=== PATIENT | female | born 1935 | race Hispanic/Latino ===

== ENCOUNTER 2020-03-06 16:09 | Emergency (ER) | payer MEDICARE ==
[~2020-03-06] VITALS: Ht 142.2 cm; Wt 36.3 kg
--- OUTSIDE RECORDS SUMMARY | 2020-03-06 16:12 | XMS REPORT ---
Author Author [facility] Address Unknown Phone Unavailable Care Team Providers Care Shoveler Name Role Phone INNA HODGES Unavailable Unavailable Payers Payer Name Policy Type Policy Number Effective Date Expiration Date Problems This patient has no known problems. Allergies, Adverse Reactions, Alerts Allergy Name Allergy Type Status Severity Reaction(s) Onset Date Inactive Date Treating Clinician Comments No Known Allergies DA Active U 2019-09-13 00:00:00 No Known Allergies DA Active U 2018-08-26 00:00:00 No Known Allergies DA Active U 2017-08-27 00:00:00 Medications This patient has no known medications. Results Test Description Test Time Test Comments Text Results Atomic Results Result Comments GLUBED 2019-09-15 13:29:00 GLUBED (test code=GLUBED) 233 mg/dL 74-106 Performed by certified track grinder operator at [facility] BASIC METABOLIC [id number] 07:07:00* Test Item Value Reference Range Comments SODIUM (test code=NA) 139 mmol/L 136-145 POTASSIUM (test code=K) 3.2 mmol/L 3.5-5.1 CHLORIDE (test code=CL) 108.0 mmol/L 98-107 CARBON DIOXIDE (test code=CO2) 21.0 mmol/L 21-32 ANION GAP (test code=GAP) 13.2 10-20 GLUCOSE (test code=GLU) 147 mg/dL 74-106 BLOOD UREA NITROGEN (test code=BUN) 19 mg/dL 7-18 GLOMERULAR FILTRATION RATE (test code=GFR) 60 mL/min >=60 Estimated GFR by using Modified MDRD formula.Chronic kidney disease is defined as either kidney damageor GFR <60 mL/min/1.73 m2 for >3 months. CREATININE (test code=CREAT) 0.90 mg/dL 0.55-1.02 Note change in reference range due to change in reagent. BUN/CREATININE RATIO (test code=BUN/CREA) 21.8 10-20 CALCIUM (test code=CA) 8.5 mg/dL 8.5-10.1 BASIC METABOLIC [id number] 06:58:00* Test Item Value Reference Range Comments SODIUM (test code=NA) 139 mmol/L 136-145 POTASSIUM (test code=K) 3.2 mmol/L 3.5-5.1 CHLORIDE (test code=CL) 108.0 mmol/L 98-107 CARBON DIOXIDE (test code=CO2) mmol/L 21-32 ANION GAP (test code=GAP) 10-20 GLUCOSE (test code=GLU) mg/dL 74-106 BLOOD UREA NITROGEN (test code=BUN) mg/dL 7-18 GLOMERULAR FILTRATION RATE (test code=GFR) mL/min >=60 CREATININE (test code=CREAT) mg/dL 0.55-1.02 BUN/CREATININE RATIO (test code=BUN/CREA) 10-20 CALCIUM (test code=CA) mg/dL 8.5-10.1 CBC W/AUTO [id number] 06:50:00* Test Item Value Reference Range Comments WHITE BLOOD CELL (test code=WBC) 12.4 K/mm3 4.5-12.5 RED BLOOD CELL (test code=RBC) 4.33 mill/mm3 3.7-5.2 HEMOGLOBIN (test code=HGB) 13.1 gram/dL 11.5-15.5 HEMATOCRIT (test code=HCT) 39.6 % 36.0-46.0 MEAN CELL VOLUME (test code=MCV) 91.5 fL 80-98 MEAN CELL HGB (test code=MCH) 30.3 picogram 27.0-33.0 MEAN CELL HGB CONCETRATION (test code=MCHC) 33.1 gram/dL 33.0-36.0 RED CELL DISTRIBUTION WIDTH (test code=RDW) 12.7 % 11.6-16.2 RED CELL DISTRIBUTION WIDTH SD (test code=RDW-SD) 42.5 fL 37.0-51.0 PLATELET COUNT (test code=PLT) 248 K/mm3 150-450 MEAN PLATELET VOLUME (test code=MPV) 10.4 fL 6.7-11.0 NEUTROPHIL % (test code=NT%) 79.6 % 39.0-69.0 IMMATURE GRANULOCYTE % (test code=IG%) 0.2 % 0.0-5.0 LYMPHOCYTE % (test code=LY%) 12.3 % 25.0-55.0 MONOCYTE % (test code=MO%) 7.2 % 0.0-10.0 EOSINOPHIL % (test code=EO%) 0.1 % 0.0-5.0 BASOPHIL % (test code=BA%) 0.6 % 0.0-1.0 NUCLEATED RBC % (test code=NRBC%) 0.0 % 0-0 NEUTROPHIL # (test code=NT#) 9.85 K/mm3 1.8-7.7 IMMATURE GRANULOCYTE # (test code=IG#) 0.03 x10 3/uL 0-0.03 LYMPHOCYTE # (test code=LY#) 1.52 K/mm3 1.0-5.0 MONOCYTE # (test code=MO#) 0.89 K/mm3 0-0.8 EOSINOPHIL # (test code=EO#) 0.01 K/mm3 0.0-0.5 BASOPHIL # (test code=BA#) 0.08 K/mm3 0.0-0.2 NUCLEATED RBC # (test code=NRBC#) 0.00 K/mm3 0.0-0.1 MANUAL DIFF REQUIRED (test code=MDIFF) NO CBC W/AUTO [id number] 06:45:00* Test Item Value Reference Range Comments WHITE BLOOD CELL (test code=WBC) K/mm3 4.5-12.5 RED BLOOD CELL (test code=RBC) mill/mm3 3.7-5.2 HEMOGLOBIN (test code=HGB) 13.1 gram/dL 11.5-15.5 HEMATOCRIT (test code=HCT) 39.6 % 36.0-46.0 MEAN CELL VOLUME (test code=MCV) fL 80-98 MEAN CELL HGB (test code=MCH) picogram 27.0-33.0 MEAN CELL HGB CONCETRATION (test code=MCHC) gram/dL 33.0-36.0 RED CELL DISTRIBUTION WIDTH (test code=RDW) % 11.6-16.2 RED CELL DISTRIBUTION WIDTH SD (test code=RDW-SD) fL 37.0-51.0 PLATELET COUNT (test code=PLT) K/mm3 150-450 MEAN PLATELET VOLUME (test code=MPV) fL 6.7-11.0 NEUTROPHIL % (test code=NT%) % 39.0-69.0 IMMATURE GRANULOCYTE % (test code=IG%) % 0.0-5.0 LYMPHOCYTE % (test code=LY%) % 25.0-55.0 MONOCYTE % (test code=MO%) % 0.0-10.0 EOSINOPHIL % (test code=EO%) % 0.0-5.0 BASOPHIL % (test code=BA%) % 0.0-1.0 NEUTROPHIL # (test code=NT#) K/mm3 1.8-7.7 LYMPHOCYTE # (test code=LY#) K/mm3 1.0-5.0 MONOCYTE # (test code=MO#) K/mm3 0-0.8 EOSINOPHIL # (test code=EO#) K/mm3 0.0-0.5 BASOPHIL # (test code=BA#) K/mm3 0.0-0.2 [id number] 06:14:00* Test Item Value Reference Range Comments GLUBED (test code=GLUBED) 148 mg/dL 74-106 Performed by certified track grinder operator at [facility] [id number] 21:05:00* Test Item Value Reference Range Comments GLUBED (test code=GLUBED) 286 mg/dL 74-106 Performed by certified track grinder operator at [facility] - CT ABD PELVIS [id number] 16:03:00 Name: MYESHA MARK [facility] : 1935 Age/S: 84 / F [address] Unit #: [id number] Loc: [place] [address] Phys: Minerva Bach MD Acct: [id number] Dis Date: Status: REG ER PHONE #: [phone] Exam Date: 09/13/2019 1536 FAX #: [phone] Reason: abd pain, uti EXAMS: CPT CODE: [id number] CT ABD PELVIS W/CONT 66950 HISTORY: Abdominal pain, urinary tract infection TECHNIQUE: Immediate and delayed [address] images were obtained through the abdomen and pelvis after IV administration of 100 mL of Isovue-370 contrast. Sagittal and coronal reformatted images were generated. Automated exposure control for dose reduction. COMPARISON: 06/13/16 FINDINGS: Lung bases are clear. Hepatomegaly. Coronary artery calcification. Liver, gallbladder, pancreas, spleen, and adrenal glands are unremarkable. Mild right and moderate left renal cortical scarring. Limited evaluation the GI tract without oral contrast. Stomach, small bowel, and appendix are unremarkable. Colonic fecal retention. No free air or free fluid. No lymphadenopathy. 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 Urinary bladder wall thickening. Hysterectomy. Tra ce pelvic free fluid. Degenerative changes of the spine, sac ral iliac joints, and hips. IMPRESSION: Urinary bladder wall thickening; correlate with clinical evidence of cystitis. No urinary calculus or hydronephrosis. Bilateral melody al cortical scarring. Electronically Sig kervin by Dary Morgan D.O. on 09/13/2019 at 1603 Reported and signed by: Dary Morgan D.O. PAGE 1 Signed Report (CONTINUED) Name: MYESHA MARK [facility] : 1935 Age/S: 84 / F [address] Unit #: [id number] Loc: [place] [address] Phys: Minerva Bach MD Acct: [id number] Dis Date: Status: REG ER PHONE #: [phone] Exam Date: 09/13/2019 1536 FAX #: [phone] Reason: abd pain, uti EXAMS: CPT CODE: [id number] CT ABD PELVIS W/CONT 84547 < Continued> CC: Minerva Bach MD; Cullen Hannah Technologist:Shira Huggins RT(R); Kimberley CTDI: DLP: Trnscb Date/Time: 09/13/2019 (1603) [email or web address] Orig Print D/T: S: 09/13/2019 (1607) PAGE 2 Signed Report BASIC METABOLIC [id number] 15:17:00* Test Item Value Reference Range Comments SODIUM (test code=NA) 153 mmol/L 136-145 POTASSIUM (test code=K) 3.6 mmol/L 3.5-5.1 CHLORIDE (test code=CL) 117.0 mmol/L 98-107 CARBON DIOXIDE (test code=CO2) 24.0 mmol/L 21-32 ANION GAP (test code=GAP) 15.6 10-20 GLUCOSE (test code=GLU) 105 mg/dL 74-106 BLOOD UREA NITROGEN (test code=BUN) 14 mg/dL 7-18 GLOMERULAR FILTRATION RATE (test code=GFR) > 60 mL/min >=60 Estimated GFR by using Modified MDRD formula.Chronic kidney disease is defined as either kidney damageor GFR <60 mL/min/1.73 m2 for >3 months. CREATININE (test code=CREAT) 0.70 mg/dL 0.55-1.02 Note change in reference range due to change in reagent. BUN/CREATININE RATIO (test code=BUN/CREA) 20.9 10-20 CALCIUM (test code=CA) 7.1 mg/dL 8.5-10.1 HEPATIC FUNCTION [id number] 15:17:00* Test Item Value Reference Range Comments TOTAL PROTEIN (test code=PROT) 5.4 gram/dL 6.4-8.2 ALBUMIN (test code=ALB) 2.7 g/dL 3.4-5.0 GLOBULIN (test code=GLOB) 2.7 gram/dL 2.7-4.2 ALBUMIN/GLOBULIN RATIO (test code=A/G) 1.0 0.75-1.50 BILIRUBIN TOTAL (test code=BILT) 0.20 mg/dL 0.0-1.0 BILIRUBIN DIRECT (test code=BILD) 0.10 mg/dL 0.0-0.20 SGOT/AST (test code=AST) 11 IUnit/L 15-37 SGPT/ALT (test code=ALT) 9 IUnit/L 12-78 ALKALINE PHOSPHATASE TOTAL (test code=ALKP) 67 IUnit/L 45-117 Note change in reference range due to change in reagent. [id number] 15:17:00* Test Item Value Reference Range Comments LIPASE (test code=LIP) 58 U/L 73.0-393.0 [id number] 15:17:00* Test Item Value Reference Range Comments TROPONIN-I (test code=TROPI) <0.015 ng/mL 0-0.045 BASIC METABOLIC [id number] 15:03:00* Test Item Value Reference Range Comments SODIUM (test code=NA) 153 mmol/L 136-145 POTASSIUM (test code=K) 3.6 mmol/L 3.5-5.1 CHLORIDE (test code=CL) 117.0 mmol/L 98-107 CARBON DIOXIDE (test code=CO2) mmol/L 21-32 ANION GAP (test code=GAP) 10-20 GLUCOSE (test code=GLU) mg/dL 74-106 BLOOD UREA NITROGEN (test code=BUN) mg/dL 7-18 GLOMERULAR FILTRATION RATE (test code=GFR) mL/min >=60 CREATININE (test code=CREAT) mg/dL 0.55-1.02 BUN/CREATININE RATIO (test code=BUN/CREA) 10-20 CALCIUM (test code=CA) mg/dL 8.5-10.1 HEPATIC FUNCTION [id number] 15:03:00* Test Item Value Reference Range Comments TOTAL PROTEIN (test code=PROT) gram/dL 6.4-8.2 ALBUMIN (test code=ALB) g/dL 3.4-5.0 GLOBULIN (test code=GLOB) gram/dL 2.7-4.2 ALBUMIN/GLOBULIN RATIO (test code=A/G) 0.75-1.50 BILIRUBIN TOTAL (test code=BILT) mg/dL 0.0-1.0 BILIRUBIN DIRECT (test code=BILD) mg/dL 0.0-0.20 SGOT/AST (test code=AST) IUnit/L 15-37 SGPT/ALT (test code=ALT) IUnit/L 12-78 ALKALINE PHOSPHATASE TOTAL (test code=ALKP) IUnit/L 45-117 [id number] 15:03:00* Test Item Value Reference Range Comments LIPASE (test code=LIP) U/L 73.0-393.0 [id number] 15:03:00* Test Item Value Reference Range Comments TROPONIN-I (test code=TROPI) ng/mL 0-0.045 URINALYSIS [id number] 15:03:00* Test Item Value Reference Range Comments UA COLOR (test code=COLU) Light-Yellow YELLOW UA APPEARANCE (test code=APPU) CLEAR CLEAR UA GLUCOSE DIPSTICK (test code=DGLUU) NEGATIVE mg/dL NEGATIVE UA BILIRUBIN DIPSTICK (test code=BILU) NEGATIVE mg/dL NEGATIVE UA KETONE DIPSTICK (test code=KETU) NEGATIVE mg/dL NEGATIVE UA SPECIFIC GRAVITY (test code=SGU) 1.013 1.001-1.035 UA BLOOD DIPSTICK (test code=RITO) Negative mg/dL NEGATIVE UA PH DIPSTICK (test code=NGOZI) 7.0 5.0-8.0 UA PROTEIN DIPSTICK (test code=PROU) 70 (1+) mg/dL NEGATIVE UA UROBILINIOGEN DIPSTICK (test code=URO) Normal mg/dL NEGATIVE UA NITRITE DIPSTICK (test code=OLIVIA) NEGATIVE NEGATIVE UA LEUKOCYTE ESTERASE W REFLEX (test code=LEUUR) NEGATIVE Jarrod/uL NEGATIVE UA WBC (test code=WBCU) 0-5 per HPF 0-5 UA RBC (test code=RBCU) 3-5 #/HPF 0-5 UA EPITHELIAL CELLS (test code=EPIU) FEW per HPF FEW UA BACTERIA (test code=BACU) NONE SEEN #/HPF NONE UA TRANSITIONAL CELLS (test code=TRANU) 0-2 per HPF Few UA MUCUS (test code=MUCU) FEW #/LPF FEW Urine Source? Clean CatchURINALYSIS [id number] 14:56:00* Test Item Value Reference Range Comments UA COLOR (test code=COLU) Light-Yellow YELLOW UA APPEARANCE (test code=APPU) CLEAR CLEAR UA GLUCOSE DIPSTICK (test code=DGLUU) NEGATIVE mg/dL NEGATIVE UA BILIRUBIN DIPSTICK (test code=BILU) NEGATIVE mg/dL NEGATIVE UA KETONE DIPSTICK (test code=KETU) NEGATIVE mg/dL NEGATIVE UA SPECIFIC GRAVITY (test code=SGU) 1.013 1.001-1.035 UA BLOOD DIPSTICK (test code=RITO) Negative mg/dL NEGATIVE UA PH DIPSTICK (test code=NGOZI) 7.0 5.0-8.0 UA PROTEIN DIPSTICK (test code=PROU) 70 (1+) mg/dL NEGATIVE UA UROBILINIOGEN DIPSTICK (test code=URO) Normal mg/dL NEGATIVE UA NITRITE DIPSTICK (test code=OLIVIA) NEGATIVE NEGATIVE UA LEUKOCYTE ESTERASE W REFLEX (test code=LEUUR) NEGATIVE Jarrod/uL NEGATIVE UA WBC (test code=WBCU) per HPF 0-5 UA RBC (test code=RBCU) per HPF 0-5 UA EPITHELIAL CELLS (test code=EPIU) per HPF Few UA BACTERIA (test code=BACU) per HPF NONE Urine Source? Clean CatchCBC W/O [id number] 14:01:00* Test Item Value Reference Range Comments WHITE BLOOD CELL (test code=WBC) 8.2 K/mm3 4.5-12.5 RED BLOOD CELL (test code=RBC) 4.75 mill/mm3 3.7-5.2 HEMOGLOBIN (test code=HGB) 14.7 gram/dL 11.5-15.5 HEMATOCRIT (test code=HCT) 43.9 % 36.0-46.0 MEAN CELL VOLUME (test code=MCV) 92.4 fL 80-98 MEAN CELL HGB (test code=MCH) 30.9 picogram 27.0-33.0 MEAN CELL HGB CONCETRATION (test code=MCHC) 33.5 gram/dL 33.0-36.0 RED CELL DISTRIBUTION WIDTH (test code=RDW) 13.1 % 11.6-16.2 PLATELET COUNT (test code=PLT) 265 K/mm3 150-450 MEAN PLATELET VOLUME (test code=MPV) 10.8 fL 6.7-11.0 TISSUE [id number] 14:15:00Surgical Pathology Report Case: [id number] Authorizing Provider: Matt Hodges, Collected: 01/25/2018 Juan9 Ordering Location: [address] Received: 01/28/2018 0809 Service Pathologist: Boby Brewster MD Specimen: Plaque, right carotid plaque ARTERY, RIGHT CAROTID, ENDARTERECTOMY:CALCIFIC ATHEROSCLEROTIC PLAQUE WITH INTRAPLAQUE HEMORRHAGE AND EARLY ORGANIZATION Signing Pathologist Direct Phone Line: [phone] signed by Boby Brewster MD on 01/30/2018 at 2:15 [id number]; [id number] of right carotid artery Right carotid plaqueSpecimen is received in a formalin-filled container labeled with the patient's information and labeled "right carotid plaque" and consists of a tubular shaped calcified segment of tissue measuring 2 cm in length and 0.6 cm in diameter. Ship Design Teacher sections are submitted in A1 for decalcification. CG/ewPerformedSHORT-LATENCY SPE, ALL [id number] 14:00:00INTRAOPERATIVE MONITORING REPORT Patient Name: Myesha Mark [facility] Surgery Date: January 25, 2018 Yana Pro S/N: [id number] Monitoring began at 1415 and ended at 1735 Surgeon: Matt Hodges M.D. Examining Neurologist: Neris Persaud M.D.PhD Monitoring Technologist: CULLEN Loving Procedure: Right carotid endarterectomy Stimulation Parameters: Median nerves individually stimulated at the wristRate 3 .63 Hz, Intensity 35mA, Duration 0.3msFilters 30-500Hz, Notch OffPosterior Tibia l nerves individually stimulated at the ankleRate 2.79 Hz, Intensity 70mA, Durat ion 0.3msFilters 30-500Hz, Notch Off Recording Parameters: C3, C4, and CPZ refer enced to FPzFree-running EEG recorded with bipolar derivation, using modified In ternational 10/20 placements:FP1-T3, FP1-C3, FP2-T4, and FP2-C4, C3-O1, T3-O1, C 4-O1, T4-O1 Description : Intraoperative neurophysiological monitoring was perfo rmed using a combination of upperand lower extremity somatosensory evoked potent ials, transcranial electrical motor evoked potentialsand free-running EEG. A pola l-time connection with the examining neurologist was established andmaintained t hroughout the operative procedure by the monitoring technologist. Upper extremit ysomatosensory evoked potentials were recorded subcortically cortically followin g median nervestimulation at the wrist. Lower extremity somatosensory evoked pot entials were recorded centrally at thecortical level following posterior tibial nerve stimulation at the ankle. No significant changes in the upperor lower extr emity SSEPs were observed during the procedure. At closing, free-running EEG rem ainedsymmetrical and at baseline frequencies with no focal changes noted to occu r throughout the operativeprocedure. Scott Persaud M.D.PhDI65.29, I65.21 -GLUCOSE [id number] 12:18:00* Test Item Value Reference Range Comments POC-GLUCOSE METER (BEAKER) (test xatr=1547) 169 mg/dL 70-110 TESTED AT [address] [address] POCT-GLUCOSE [id number] 08:24:00* Test Item Value Reference Range Comments POC-GLUCOSE METER (BEAKER) (test ykqn=3506) 127 mg/dL 70-110 TESTED AT [address] [address] POCT-GLUCOSE [id number] 21:51:00* Test Item Value Reference Range Comments POC-GLUCOSE METER (BEAKER) (test poiv=2958) 169 mg/dL 70-110 TESTED AT [address] [address] POCT-GLUCOSE [id number] 12:44:00* Test Item Value Reference Range Comments POC-GLUCOSE METER (BEAKER) (test ptcr=9257) 173 mg/dL 70-110 TESTED AT [address] [address] POCT-GLUCOSE [id number] 08:09:00* Test Item Value Reference Range Comments POC-GLUCOSE METER (BEAKER) (test vwst=2243) 143 mg/dL 70-110 TESTED AT [address] [address] POCT-GLUCOSE [id number] 21:32:00* Test Item Value Reference Range Comments POC-GLUCOSE METER (BEAKER) (test gxrd=7508) 182 mg/dL 70-110 TESTED AT [address] [address] POCT-GLUCOSE [id number] 17:25:00* Test Item Value Reference Range Comments POC-GLUCOSE METER (BEAKER) (test ijmo=8316) 188 mg/dL 70-110 TESTED AT [facility] [address] [facility] [address] POCT-GLUCOSE [id number] 13:32:00* Test Item Value Reference Range Comments POC-GLUCOSE METER (BEAKER) (test aysf=3609) 174 mg/dL 70-110 TESTED AT [facility] [address] [facility] [address] POCT-GLUCOSE [id number] 08:11:00* Test Item Value Reference Range Comments POC-GLUCOSE METER (BEAKER) (test dxbr=5856) 157 mg/dL 70-110 TESTED AT [address] [address] BASIC METABOLIC [id number] 07:23:00* Test Item Value Reference Range Comments SODIUM (BEAKER) (test hkgc=142) 133 meq/L 136-145 POTASSIUM (BEAKER) (test idam=947) 4.3 meq/L 3.5-5.1 CHLORIDE (BEAKER) (test rvvd=739) 99 meq/L 98-107 CO2 (BEAKER) (test rauq=265) 26 meq/L 22-29 BLOOD UREA NITROGEN (BEAKER) (test rqmy=783) 15 mg/dL 7-21 CREATININE (BEAKER) (test hlxu=310) 0.81 mg/dL 0.57-1.25 GLUCOSE RANDOM (BEAKER) (test hrai=392) 155 mg/dL 70-105 CALCIUM (BEAKER) (test hlgh=429) 8.8 mg/dL 8.4-10.2 EGFR (BEAKER) (test knkl=2025) 68 mL/min/1.73 sq m ESTIMATED GFR IS NOT ACCURATE CREATININE CLEARANCE IN PREDICTING GLOMERULAR FILTRATION RATE. ESTIMATED GFR IS NOT APPLICABLE FOR DIALYSIS PATIENTS. [id number] 05:38:00* Test Item Value Reference Range Comments PROTIME (BEAKER) (test guok=270) 14.8 seconds 11.7-14.7 INR (BEAKER) (test seyi=433) 1.2 <=5.9 PARTIAL THROMBOPLASTIN TIME (BEAKER) (test szwr=173) 36.5 seconds 22.5-36.0 RECOMMENDED COUMADIN/WARFARIN INR THERAPY RANGESSTANDARD DOSE: 2.0 - 3.0 Inclu celi: PROPHYLAXIS for venous thrombosis, systemic embolization; TREATMENT for j carlos ous thrombosis and/or pulmonary embolus.HIGH RISK: Target INR is 2.5-3.5 for pat ients with mechanical heart valves.CBC (HEMOGRAM ONLY)2018-01-28 05:16:00* Test Item Value Reference Range Comments WHITE BLOOD CELL COUNT (BEAKER) (test fgfo=464) 9.0 K/ L 3.5-10.5 RED BLOOD CELL COUNT (BEAKER) (test qbea=003) 3.36 M/ L 3.93-5.22 HEMOGLOBIN (BEAKER) (test yuff=776) 10.1 GM/DL 11.2-15.7 HEMATOCRIT (BEAKER) (test qgre=939) 30.4 % 34.1-44.9 MEAN CORPUSCULAR VOLUME (BEAKER) (test rxkw=505) 90.5 fL 79.4-94.8 MEAN CORPUSCULAR HEMOGLOBIN (BEAKER) (test lqsc=597) 30.1 pg 25.6-32.2 MEAN CORPUSCULAR HEMOGLOBIN CONC (BEAKER) (test mrmu=688) 33.2 GM/DL 32.2-35.5 RED CELL DISTRIBUTION WIDTH (BEAKER) (test vijh=039) 12.8 % 11.7-14.4 PLATELET COUNT (BEAKER) (test qfmn=910) 231 K/CU MM 150-450 MEAN PLATELET VOLUME (BEAKER) (test zawx=212) 10.7 fL 9.4-12.3 NUCLEATED RED BLOOD CELLS (BEAKER) (test crsv=559) 0 /100 WBC 0-0 POCT-GLUCOSE [id number] 22:25:00* Test Item Value Reference Range Comments POC-GLUCOSE METER (BEAKER) (test kiia=3076) 162 mg/dL 70-110 [address]ED AT [address] [address] POCT-GLUCOSE [id number] 17:14:00* Test Item Value Reference Range Comments POC-GLUCOSE METER (BEAKER) (test kosw=0289) 187 mg/dL 70-110 TESTED AT [address] [address] POCT-GLUCOSE [id number] 12:38:00* Test Item Value Reference Range Comments POC-GLUCOSE METER (BEAKER) (test iivy=0909) 201 mg/dL 70-110 TESTED AT [address] [address] POCT-GLUCOSE [id number] 08:01:00* Test Item Value Reference Range Comments POC-GLUCOSE METER (BEAKER) (test nwlx=9139) 152 mg/dL 70-110 TESTED AT [facility] [address] [facility] [address] BASIC METABOLIC [id number] 07:24:00* Test Item Value Reference Range Comments SODIUM (BEAKER) (test jwcm=707) 133 meq/L 136-145 POTASSIUM (BEAKER) (test fycp=857) 4.4 meq/L 3.5-5.1 CHLORIDE (BEAKER) (test myfq=113) 101 meq/L 98-107 CO2 (BEAKER) (test ltqh=981) 26 meq/L 22-29 BLOOD UREA NITROGEN (BEAKER) (test xuxe=333) 20 mg/dL 7-21 CREATININE (BEAKER) (test xuum=935) 0.92 mg/dL 0.57-1.25 GLUCOSE RANDOM (BEAKER) (test qacq=889) 148 mg/dL 70-105 CALCIUM (BEAKER) (test csdi=503) 8.9 mg/dL 8.4-10.2 EGFR (BEAKER) (test mwld=5860) 58 mL/min/1.73 sq m ESTIMATED GFR IS NOT ACCURATE CREATININE CLEARANCE IN PREDICTING GLOMERULAR FILTRATION RATE. ESTIMATED GFR IS NOT APPLICABLE FOR DIALYSIS PATIENTS. PT/[id number] 06:52:00* Test Item Value Reference Range Comments PROTIME (BEAKER) (test skih=080) 15.0 seconds 11.7-14.7 INR (BEAKER) (test urjy=073) 1.2 <=5.9 PARTIAL THROMBOPLASTIN TIME (BEAKER) (test jwha=792) 36.4 seconds 22.5-36.0 RECOMMENDED COUMADIN/WARFARIN INR THERAPY RANGESSTANDARD DOSE: 2.0 - 3.0 Inclu celi: PROPHYLAXIS for venous thrombosis, systemic embolization; TREATMENT for j carlos ous thrombosis and/or pulmonary embolus.HIGH RISK: Target INR is 2.5-3.5 for pat ients with mechanical heart valves.CBC (HEMOGRAM ONLY)2018-01-27 06:41:00* Test Item Value Reference Range Comments WHITE BLOOD CELL COUNT (BEAKER) (test yxwd=253) 12.2 K/ L 3.5-10.5 RED BLOOD CELL COUNT (BEAKER) (test mdso=430) 3.57 M/ L 3.93-5.22 HEMOGLOBIN (BEAKER) (test cnss=079) 10.6 GM/DL 11.2-15.7 HEMATOCRIT (BEAKER) (test kqch=631) 31.8 % 34.1-44.9 MEAN CORPUSCULAR VOLUME (BEAKER) (test pazm=862) 89.1 fL 79.4-94.8 MEAN CORPUSCULAR HEMOGLOBIN (BEAKER) (test cetr=117) 29.7 pg 25.6-32.2 MEAN CORPUSCULAR HEMOGLOBIN CONC (BEAKER) (test ztrq=452) 33.3 GM/DL 32.2-35.5 RED CELL DISTRIBUTION WIDTH (BEAKER) (test nrqh=761) 12.9 % 11.7-14.4 PLATELET COUNT (BEAKER) (test tkzc=952) 258 K/CU MM 150-450 MEAN PLATELET VOLUME (BEAKER) (test cbpc=317) 10.7 fL 9.4-12.3 NUCLEATED RED BLOOD CELLS (BEAKER) (test cgpq=580) 0 /100 WBC 0-0 POCT-GLUCOSE [id number] 22:10:00* Test Item Value Reference Range Comments POC-GLUCOSE METER (BEAKER) (test ikoe=0995) 306 mg/dL 70-110 Notified POOL THOMAS/TESTED AT [place] [id number] POCT-GLUCOSE [id number] 17:33:00* Test Item Value Reference Range Comments POC-GLUCOSE METER (BEAKER) (test ptts=2112) 312 mg/dL 70-110 Notified POOL THOMAS/TESTED AT [address] [address] POCT-GLUCOSE [id number] 12:39:00* Test Item Value Reference Range Comments POC-GLUCOSE METER (BEAKER) (test zlcr=7983) 172 mg/dL 70-110 TESTED AT [place] [id number] POCT-GLUCOSE [id number] 07:55:00* Test Item Value Reference Range Comments POC-GLUCOSE METER (BEAKER) (test iojk=5229) 110 mg/dL 70-110 TESTED AT [address] [address] BASIC METABOLIC [id number] 07:37:00* Test Item Value Reference Range Comments SODIUM (BEAKER) (test jmtk=167) 135 meq/L 136-145 POTASSIUM (BEAKER) (test slky=754) 4.2 meq/L 3.5-5.1 CHLORIDE (BEAKER) (test qxvn=240) 102 meq/L 98-107 CO2 (BEAKER) (test gusa=799) 23 meq/L 22-29 BLOOD UREA NITROGEN (BEAKER) (test cmun=586) 18 mg/dL 7-21 CREATININE (BEAKER) (test wsaq=674) 0.85 mg/dL 0.57-1.25 GLUCOSE RANDOM (BEAKER) (test jxsu=659) 102 mg/dL 70-105 CALCIUM (BEAKER) (test jtei=017) 8.9 mg/dL 8.4-10.2 EGFR (BEAKER) (test wseg=6510) 64 mL/min/1.73 sq m ESTIMATED GFR IS NOT ACCURATE CREATININE CLEARANCE IN PREDICTING GLOMERULAR FILTRATION RATE. ESTIMATED GFR IS NOT APPLICABLE FOR DIALYSIS PATIENTS. PT/[id number] 07:26:00* Test Item Value Reference Range Comments PROTIME (BEAKER) (test xoad=739) 15.0 seconds 11.7-14.7 INR (BEAKER) (test umdt=898) 1.2 <=5.9 PARTIAL THROMBOPLASTIN TIME (BEAKER) (test atay=051) 33.4 seconds 22.5-36.0 RECOMMENDED COUMADIN/WARFARIN INR THERAPY RANGESSTANDARD DOSE: 2.0 - 3.0 Inclu celi: PROPHYLAXIS for venous thrombosis, systemic embolization; TREATMENT for j carlos ous thrombosis and/or pulmonary embolus.HIGH RISK: Target INR is 2.5-3.5 for pat ients with mechanical heart valves.CBC (HEMOGRAM ONLY)2018-01-26 07:22:00* Test Item Value Reference Range Comments WHITE BLOOD CELL COUNT (BEAKER) (test yrvd=536) 11.1 K/ L 3.5-10.5 RED BLOOD CELL COUNT (BEAKER) (test bxkd=900) 3.76 M/ L 3.93-5.22 HEMOGLOBIN (BEAKER) (test yqrf=384) 11.1 GM/DL 11.2-15.7 HEMATOCRIT (BEAKER) (test defp=683) 33.5 % 34.1-44.9 MEAN CORPUSCULAR VOLUME (BEAKER) (test vsep=928) 89.1 fL 79.4-94.8 MEAN CORPUSCULAR HEMOGLOBIN (BEAKER) (test ijdq=039) 29.5 pg 25.6-32.2 MEAN CORPUSCULAR HEMOGLOBIN CONC (BEAKER) (test yxcc=022) 33.1 GM/DL 32.2-35.5 RED CELL DISTRIBUTION WIDTH (BEAKER) (test oyhx=753) 12.7 % 11.7-14.4 PLATELET COUNT (BEAKER) (test yynl=481) 250 K/CU MM 150-450 MEAN PLATELET VOLUME (BEAKER) (test nafp=917) 11.2 fL 9.4-12.3 NUCLEATED RED BLOOD CELLS (BEAKER) (test qaam=828) 0 /100 WBC 0-0 POCT-GLUCOSE [id number] 21:29:00* Test Item Value Reference Range Comments POC-GLUCOSE METER (BEAKER) (test kkml=9598) 184 mg/dL 70-110 TESTED AT [facility] [address] [place] [address] HGB/HCT (H&H) - STAT [id number] 17:56:00* Test Item Value Reference Range Comments HEMOGLOBIN (BEAKER) (test puju=596) 11.4 g/dL 12.0-15.0 HEMATOCRIT (BEAKER) (test uofa=796) 34.0 % 36.0-45.0 CALCIUM, [id number] 15:08:00* Test Item Value Reference Range Comments CALCIUM IONIZED (BEAKER) (test qfqf=324) 1.05 mmol/L 1.12-1.27 PH, BLOOD (BEAKER) (test migr=6259) 7.50 BLOOD GAS, [id number] 15:07:00* Test Item Value Reference Range Comments PH ARTERIAL (BEAKER) (test crni=570) 7.52 7.35-7.45 PCO2 ARTERIAL (BEAKER) (test fwit=639) 30 mmHg 35-45 PO2 ARTERIAL (BEAKER) (test nmnq=746) 370 mmHg 80-90 O2 SATURATION ARTERIAL (BEAKER) (test aidm=893) 99.8 % 96.0-97.0 HCO3 ARTERIAL (BEAKER) (test lxlp=326) 25 mmol/L 21-29 BASE EXCESS ARTERIAL (BEAKER) (test ofpj=510) 1.7 mmol/L -2.0-3.0 PATIENT TEMPERATURE (BEAKER) (test zucn=2005) 35.7 C FIO2 (BEAKER) (test xipd=5793) 70.0 % HGB/HCT (H&H) - STAT [id number] 15:07:00* Test Item Value Reference Range Comments HEMOGLOBIN (BEAKER) (test wnvo=138) 10.6 g/dL 12.0-15.0 HEMATOCRIT (BEAKER) (test zwqp=358) 31.0 % 36.0-45.0 GLUCOSE-STAT [id number] 15:05:00* Test Item Value Reference Range Comments GLUCOSE RANDOM (BEAKER) (test tnzi=396) 97 mg/dL 70-110 SODIUM NA-STAT [id number] 15:05:00* Test Item Value Reference Range Comments SODIUM (BEAKER) (test jrli=760) 135 meq/L 135-148 POTASSIUM-STAT [id number] 15:05:00* Test Item Value Reference Range Comments POTASSIUM (BEAKER) (test nbaz=342) 3.5 meq/L 3.6-5.5 POCT-GLUCOSE [id number] 12:10:00* Test Item Value Reference Range Comments POC-GLUCOSE METER (BEAKER) (test ceyx=7464) 116 mg/dL 70-110 TESTED AT [address] [address] POCT-GLUCOSE [id number] 07:32:00* Test Item Value Reference Range Comments POC-GLUCOSE METER (BEAKER) (test gyei=4902) 84 mg/dL 70-110 TESTED AT [address] [address] POCT-GLUCOSE [id number] 21:50:00* Test Item Value Reference Range Comments POC-GLUCOSE METER (BEAKER) (test tyvu=9339) 185 mg/dL 70-110 TESTED AT [address] [address] POCT-GLUCOSE [id number] 18:08:00* Test Item Value Reference Range Comments POC-GLUCOSE METER (BEAKER) (test xmyn=2808) 185 mg/dL 70-110 TESTED AT [address] [place] [address] POCT-GLUCOSE [id number] 12:27:00* Test Item Value Reference Range Comments POC-GLUCOSE METER (BEAKER) (test kbbs=4085) 91 mg/dL 70-110 TESTED AT [facility] [address] [facility] [address] POCT-GLUCOSE [id number] 09:21:00* Test Item Value Reference Range Comments POC-GLUCOSE METER (BEAKER) (test jfna=3188) 91 mg/dL 70-110 TESTED AT [address] [address] RAD, CHEST, 1 VIEW, NON [id number] 07:44:00Reason for exam:->pre op eval FINAL REPORT CLINICAL HISTORY: pre op eval TECHNIQUE: 1 view of the chest. COMPARISON: None IMPRESSION: There are no focal infiltrates o r effusions. The cardiomediastinal silhouette is magnified by technique. The oss eous structures appear intact. Signed: Emily Bailon MDReport Verified Date/Time : 01/24/2018 07:44:05 Reading Location: [facility] Radiology Reading Room W/PLT COUNT & AUTO [id number] 05:52:00* Test Item Value Reference Range Comments WHITE BLOOD CELL COUNT (BEAKER) (test snaw=757) 9.5 K/ L 3.5-10.5 RED BLOOD CELL COUNT (BEAKER) (test pbhb=912) 3.31 M/ L 3.93-5.22 HEMOGLOBIN (BEAKER) (test sajb=051) 9.9 GM/DL 11.2-15.7 HEMATOCRIT (BEAKER) (test dqmj=539) 30.1 % 34.1-44.9 MEAN CORPUSCULAR VOLUME (BEAKER) (test tkgg=436) 90.9 fL 79.4-94.8 MEAN CORPUSCULAR HEMOGLOBIN (BEAKER) (test hfkk=575) 29.9 pg 25.6-32.2 MEAN CORPUSCULAR HEMOGLOBIN CONC (BEAKER) (test cboh=378) 32.9 GM/DL 32.2-35.5 RED CELL DISTRIBUTION WIDTH (BEAKER) (test xpdw=910) 12.7 % 11.7-14.4 PLATELET COUNT (BEAKER) (test bmkb=600) 183 K/CU MM 150-450 MEAN PLATELET VOLUME (BEAKER) (test eccs=027) 11.9 fL 9.4-12.3 NUCLEATED RED BLOOD CELLS (BEAKER) (test iveh=424) 0 /100 WBC 0-0 NEUTROPHILS RELATIVE PERCENT (BEAKER) (test qwdq=470) 59 % LYMPHOCYTES RELATIVE PERCENT (BEAKER) (test cuzt=223) 27 % MONOCYTES RELATIVE PERCENT (BEAKER) (test kvmb=263) 10 % EOSINOPHILS RELATIVE PERCENT (BEAKER) (test jimr=314) 4 % BASOPHILS RELATIVE PERCENT (BEAKER) (test rfnh=613) 1 % NEUTROPHILS ABSOLUTE COUNT (BEAKER) (test eulq=158) 5.63 K/ L 1.56-6.13 LYMPHOCYTES ABSOLUTE COUNT (BEAKER) (test vamv=689) 2.52 K/ L 1.18-3.74 MONOCYTES ABSOLUTE COUNT (BEAKER) (test dzdg=689) 0.92 K/ L 0.24-0.36 EOSINOPHILS ABSOLUTE COUNT (BEAKER) (test leii=710) 0.34 K/ L 0.04-0.36 BASOPHILS ABSOLUTE COUNT (BEAKER) (test mihr=882) 0.07 K/ L 0.01-0.08 IMMATURE GRANULOCYTES-RELATIVE PERCENT (BEAKER) (test lrab=8364) 0 % 0-1 [id number] 05:06:00* Test Item Value Reference Range Comments PARTIAL THROMBOPLASTIN TIME (BEAKER) (test nswu=936) 40.7 seconds 22.5-36.0 PROTHROMBIN TIME/[id number] 05:05:00* Test Item Value Reference Range Comments PROTIME (BEAKER) (test yyuv=932) 14.8 seconds 11.7-14.7 INR (BEAKER) (test kgpy=940) 1.2 <=5.9 RECOMMENDED COUMADIN/WARFARIN INR THERAPY RANGESSTANDARD DOSE: 2.0 - 3.0 Inclu celi: PROPHYLAXIS for venous thrombosis, systemic embolization; TREATMENT for j carlos ous thrombosis and/or pulmonary embolus.HIGH RISK: Target INR is 2.5-3.5 for pat ients with mechanical heart valves.[id number] 04:58:00* Test Item Value Reference Range Comments MAGNESIUM (BEAKER) (test wzvd=120) 2.3 mg/dL 1.6-2.6 Specimen slightly hemolyzed BASIC METABOLIC [id number] 04:58:00* Test Item Value Reference Range Comments SODIUM (BEAKER) (test njpr=239) 135 meq/L 136-145 POTASSIUM (BEAKER) (test wnly=665) 4.4 meq/L 3.5-5.1 Specimen slightly hemolyzed CHLORIDE (BEAKER) (test lgqn=452) 102 meq/L 98-107 CO2 (BEAKER) (test tybu=656) 24 meq/L 22-29 BLOOD UREA NITROGEN (BEAKER) (test ipho=401) 15 mg/dL 7-21 CREATININE (BEAKER) (test erln=968) 0.94 mg/dL 0.57-1.25 Specimen slightly hemolyzed GLUCOSE RANDOM (BEAKER) (test kvan=272) 122 mg/dL 70-105 CALCIUM (BEAKER) (test fldr=742) 8.6 mg/dL 8.4-10.2 EGFR (BEAKER) (test lcoq=6923) 57 mL/min/1.73 sq m ESTIMATED GFR IS NOT ACCURATE CREATININE CLEARANCE IN PREDICTING GLOMERULAR FILTRATION RATE. ESTIMATED GFR IS NOT APPLICABLE FOR DIALYSIS PATIENTS. POCT-GLUCOSE [id number] 22:57:00* Test Item Value Reference Range Comments POC-GLUCOSE METER (BEAKER) (test cylp=7738) 242 mg/dL 70-110 TESTED AT [facility] [address] [facility] [address]
--- NOTE | 2020-03-06 17:40 | Diagnostic Imaging Report ---
EXAMINATION: CXR 2 VIEW - HOPD INDICATION: Fall. COMPARISON: None FINDINGS: TUBES and LINES: None. LUNGS: Lungs are well inflated. There is no evidence of pneumonia or pulmonary edema. PLEURA: No pleural effusion or pneumothorax. HEART AND MEDIASTINUM: The cardiomediastinal silhouette is unremarkable. There are atherosclerotic calcifications within the aorta. BONES AND SOFT TISSUES: No acute osseous abnormality. Diffuse osteopenia. Levoconvex scoliosis of the thoracic spine. Surgical clips overlying the right neck. UPPER ABDOMEN: No free air under the diaphragm. IMPRESSION: No acute thoracic abnormality. Signed by: Dr. Laura Martines MD on 03/06/2020 5:36 PM
--- NOTE | 2020-03-06 17:44 | Diagnostic Imaging Report ---
EXAM: Lumbar spine radiographs-3 views INDICATION: Fall. COMPARISON: None FINDINGS: Examination is limited secondary to soft tissue attenuation and diffuse osteopenia. No evidence of acute displaced fracture Grade 2 anterolisthesis of L5 on S1. Dextroconvex scoliosis of the lumbar spine. Degenerative disc and facet degenerative changes. Atherosclerotic vascular calcifications. IMPRESSION: Limited examination demonstrating no evidence of acute displaced fracture. Diffuse osteopenia. Grade 2 anterolisthesis of L5 on S1. Signed by: Dr. Laura Martines MD on 03/06/2020 5:41 PM
[2020-03-06] MEDS ORDERED: OXYBUTYNIN CHLOR5 MG PO (18:30)
[2020-03-06] MEDS ORDERED: ALPRAZOLAM0.5 MG PO (18:30)
[2020-03-06] MEDS ORDERED: AMLODIPINE BESYL5 MG PO (18:30)
[2020-03-06] MEDS ORDERED: ARICEPT5 MG PO (18:30)
[2020-03-06] MEDS ORDERED: SIMVASTATIN40 MG PO (18:30)
--- NOTE | 2020-03-06 18:31 | Diagnostic Imaging Report ---
Exams: Head and cervical spine CTs without IV contrast History: Trauma, fall Comparison studies: None Technique: Axial images were obtained through the brain. Dose modulation, iterative reconstruction, and/or weight based adjustment of the mA/kV was utilized to reduce the radiation dose to as low as reasonably achievable. Radiation dose: Total DLP: 969.14 mGy*cm. Estimated effective dose: DLP x 0.015 Intravenous contrast: None Findings: Head CT: Scalp: No abnormalities. Bones: No fractures, blastic or lytic lesions. Extra-axial spaces: No masses. No fluid collections. Brain sulci: Mildly prominent. Ventricles: Moderate compensatory dilatation. No hydrocephalus. Parenchyma: No mass, acute hemorrhage or acute cortical vascular insults. A few scattered hypodensities in the supratentorial white matter are nonspecific but most compatible with chronic small vessel ischemic changes. Sellar/suprasellar region: No abnormalities. Craniocervical junction: The foramen magnum is patent. No Chiari one malformation. Incidental findings: Atherosclerotic calcifications in the carotid siphons.. IMPRESSION: Head CT: 1. No acute abnormalities. 2. Generalized parenchymal volume loss. 3. Mild microvascular ischemic changes. Signed by: Dr. Kelvin Vogel M.D. on 03/06/2020 6:28 PM
--- NOTE | 2020-03-06 18:40 | Diagnostic Imaging Report ---
History: Trauma, fall Comparison studies: None Technique: Axial images were obtained through the cervical region. Coronal and sagittal images reconstructed from the axial data. Dose modulation, iterative reconstruction, and/or weight based adjustment of the mA/kV was utilized to reduce the radiation dose to as low as reasonably achievable. Intravenous contrast: None Findings: Atlantoaxial articulation: Intact. Alignment: Straightened cervical curvature may be positional. No subluxations. Cervicomedullary junction: No abnormalities. The foramen magnum is patent. Soft tissues: No gross acute abnormalities. Postsurgical changes in the right neck along the right carotid space (? prior carotid endarterectomy). Concurrent with surgical history. Scattered calcified atherosclerosis with moderate calcified plaque at the left carotid bulb. Vertebrae: No fractures, infection or neoplasm. Degenerative changes: Degenerative changes at the C1-C2 articulation with ligamentous calcification posterior to the dens. Multilevel disc degeneration; mild at C2-C3, moderate from C3 to C6, severe at C6-C7 and mild at C7-T1. Moderate canal stenosis at C3-C4 due to an asymmetric left disc osteophyte and thickened and calcified ligamentum flavum. Mild canal stenosis from C4 to C7 due to disc osteophyte complexes on thickened and calcified ligamentum flavum at C6-C7. Mild foraminal stenosis bilaterally at C4-C5 and at C5-C6 and moderate left and mild/moderate right foraminal stenosis at C6-C7 due to uncovertebral arthrosis. Incidental findings: Right upper lobe 2 mm pulmonary nodule. IMPRESSION: 1. No cervical spine fracture or subluxation. 2. Multilevel degenerative changes as described. Ligament, spinal cord and or vascular abnormalities cannot be excluded on the basis of this examination Signed by: Dr. Kelvin Vogel M.D. on 03/06/2020 6:37 PM
[2020-03-06 19:03] VITALS: BP 146/81
== END 2020-03-06 18:57 | disposition home or self-care (01) ==
LOC: FSED 16:09
DX: S00.83XA Contusion of other part of head, initial encounter (principal); S16.1XXA Strain of muscle, fascia and tendon at neck level, initial encounter; S23.3XXA Sprain of ligaments of thoracic spine, initial encounter; S33.5XXA Sprain of ligaments of lumbar spine, initial encounter; W18.30XA Fall on same level, unspecified, initial encounter; Y92.008 Other place in unspecified non-institutional (private) residence as the place of occurrence of the external cause; G30.9 Alzheimer's disease, unspecified; F02.80 Dementia in other diseases classified elsewhere, unspecified severity, without behavioral disturbance, psychotic disturbance, mood disturbance, and anxiety
CPT/HCPCS: 70450; 71046; 72100; 72125; 99283

== ENCOUNTER → 2023-04-20 | Outpatient (CLI) | payer MEDICARE ==
[~2023-04-20] MED LIST: ALPRAZOLAM0.5 MG PO; AMLODIPINE BESYL5 MG PO; ARICEPT5 MG PO; OXYBUTYNIN CHLOR5 MG PO; SIMVASTATIN40 MG PO
== END ==
LOC: MRI 13:11
PROVIDERS: ATTEND Specialist
DX: M84.48XA Pathological fracture, other site, initial encounter for fracture (principal); S39.012A Strain of muscle, fascia and tendon of lower back, initial encounter
CPT/HCPCS: 72148; 72195

== ENCOUNTER 2023-04-23 15:00 | Emergency (ER) | payer MEDICARE ==
[~2023-04-23] VITALS: Ht 142.2 cm; Wt 36.3 kg
[2023-04-23 15:08] VITALS: O2SAT 100
[2023-04-23] MEDS ORDERED: ACETAMINOPHEN 325 MG TAB PO ONE (15:15)
== END 2023-04-23 17:47 | disposition home or self-care (01) ==
LOC: ER 15:04
DX: S09.90XA Unspecified injury of head, initial encounter (principal); S70.02XA Contusion of left hip, initial encounter; M54.9 Dorsalgia, unspecified; E11.22 Type 2 diabetes mellitus with diabetic chronic kidney disease; I12.9 Hypertensive chronic kidney disease with stage 1 through stage 4 chronic kidney disease, or unspecified chronic kidney disease; N18.9 Chronic kidney disease, unspecified; W07.XXXA Fall from chair, initial encounter; Y92.009 Unspecified place in unspecified non-institutional (private) residence as the place of occurrence of the external cause; Z79.899 Other long term (current) drug therapy
CPT/HCPCS: 70450; 72125; 72192; 99283

== ENCOUNTER 2024-07-25 13:16 | Emergency (ER) | payer MEDICARE ==
[~2024-07-25] VITALS: Ht 144.8 cm; Wt 40.4 kg
[~2024-07-25 13:16] MED LIST changes: +AMOX TR-K CLV1 EAC2 PO; +CEFDINIR300 MG PO; +CEFUROXIME500 MG PO; +CIPRO500 MG PO
[2024-07-25] MEDS ORDERED: BENZONATATE100 MG PO (14:51)
[2024-07-25] MEDS ORDERED: TRAZODONE HCL50 MG PO (14:51)
[2024-07-25] MEDS: CEFTRIAXONE 1 GM VIAL IM ONE (15:29)
[2024-07-25] MEDS: SODIUM CHLORIDE 0.9% 500ML 500 ML IV ONE (15:29)
[2024-07-25] MEDS ORDERED: CEFPODOXIME PR200 MG PO (16:04)
[2024-07-25 16:19] VITALS: PULSE 73; RESP 14; TEMP 98; O2SAT 98
== END 2024-07-25 16:13 | disposition home or self-care (01) ==
LOC: FSED 13:18
DX: R41.0 Disorientation, unspecified (principal); N39.0 Urinary tract infection, site not specified; R05.9 Cough, unspecified; G30.9 Alzheimer's disease, unspecified; F02.80 Dementia in other diseases classified elsewhere, unspecified severity, without behavioral disturbance, psychotic disturbance, mood disturbance, and anxiety; I10 Essential (primary) hypertension; E11.9 Type 2 diabetes mellitus without complications; M81.0 Age-related osteoporosis without current pathological fracture
CPT/HCPCS: 70450; 71045; 80053; 81003; 85025; 87086; 87186; 99284; J0696; J7040